=== PATIENT | male | born 1960 | race Caucasian/White ===

== ENCOUNTER 2019-04-09 02:16 | Emergency (ER) | payer BC ==
[~2019-04-09] VITALS: Ht 175.3 cm; Wt 74.8 kg
[2019-04-09 03:36] VITALS: BP 146/84
== END 2019-04-09 04:05 | disposition home or self-care (01) ==
LOC: ER 02:32
DX: J02.9 Acute pharyngitis, unspecified (principal); F32.9 Major depressive disorder, single episode, unspecified